=== PATIENT | male | born 2000 | race Caucasian/White ===

== ENCOUNTER 2021-06-16 20:53 | Emergency (ER) | payer OTHER ==
[~2021-06-16] VITALS: Ht 177.8 cm; Wt 91.0 kg
[2021-06-16 23:03] LABS: BASOPHILS % 0.3 % (0.0-2.0); EOSINOPHILS % 0.5 % (0.0-5.0); HEMATOCRIT. 46.8 % (42.0-52.0); HEMOGLOBIN. 15.5 g/dL (14.0-18.0); LYMPHOCYTES % 22.4 % (20.0-50.0); MEAN CORPUSCULAR VOLUME 90.6 fL (80.0-94.0); MEAN PLATELET VOLUME 11.6 fl (7.4-10.4); MONOCYTES % 9.7 % (2.0-8.0); NEUTROPHILS % 67.1 % (40.0-76.0); PLATELET 157 x1000/uL (130-400); RED BLOOD CELL COUNT 5.16 mill/uL (4.7-6.1); RED CELL DISTRIBUTION WIDTH 13.6 % (11.6-14.6)
[2021-06-16 23:09] LABS: CHLORIDE 107 mEq/L (98-107)
[2021-06-16 23:16] LABS: ETHANOL BLOOD < 10 mg/dL
[2021-06-17 03:59] LABS: CLARITY URINE CLOUDY (CLEAR); COLOR URINE YELLOW (YELLOW); KETONES URINE 1+ (NEGATIVE); LEUKOCYTE ESTERASE URINE NEGATIVE (NEGATIVE); NITRITE URINE NEGATIVE (NEGATIVE); OCCULT BLOOD URINE NEGATIVE (NEGATIVE); PH URINE 7.5 (4.5-8.0); PROTEIN URINE NEGATIVE (NEGATIVE); SPECIFIC GRAVITY URINE 1.018 (1.005-1.030)
[2021-06-17 04:13] LABS: *AMPHETAMINES SCREEN URINE NEGATIVE (NEGATIVE); *BARBITURATES SCREEN URINE NEGATIVE (NEGATIVE); *BENZODIAZEPINES SCREEN URINE NEGATIVE (NEGATIVE); *COCAINE SCREEN URINE NEGATIVE (NEGATIVE); METHADONE URINE SCREEN NEGATIVE (NEGATIVE); OPIATES URINE SCREEN NEGATIVE (NEGATIVE); PHENCYCLIDINE URINE SCREEN NEGATIVE (NEGATIVE)
[2021-06-17 04:14] LABS: CANNABINOID URINE SCREEN PRESUMTIVE POSITIVE (NEGATIVE)
[2021-06-17] MEDS ORDERED: ONDANSETRON 4MG ODT PO ONE (18:45)
[2021-06-17] MEDS: RISPERIDONE 1MG TABLET PO SCH (21:30)
[2021-06-18] MEDS: RISPERIDONE 1MG TABLET PO SCH ×2 (09:53→21:48)
[2021-06-19] MEDS ORDERED: TOPUD PO (08:39)
[2021-06-19 09:06] VITALS: BP 110/70
[2021-06-19] MEDS: RISPERIDONE 1MG TABLET PO SCH (09:06)
== END 2021-06-19 09:30 | disposition home or self-care (01) ==
LOC: ER 20:53
DX: F23 Brief psychotic disorder (principal); U07.1 COVID-19; F41.9 Anxiety disorder, unspecified; F84.0 Autistic disorder; R74.01 Elevation of levels of liver transaminase levels
CPT/HCPCS: 36415; 76705; 80053; 80307; 80320; 80329; 82962; 85025; 99285; G0480